=== PATIENT | male | born 1945 | race Caucasian/White ===

== ENCOUNTER 2016-08-01 21:19 | Emergency (ER) | payer MEDICARE ==
[~2016-08-01] VITALS: Ht 182.9 cm; Wt 78.6 kg
[2016-08-01 21:29] VITALS: BP 92/58; PULSE 98; RESP 14; TEMP 100; O2SAT 96
[2016-08-01 21:40] VITALS: BP 116/54; PULSE 87; RESP 18
[2016-08-01] MEDS ORDERED: PROC10TA PO (21:49)
[2016-08-01] MEDS ORDERED: GEMC1INJ IV (21:49)
[2016-08-01] MEDS ORDERED: ONDA1TAB17 PO (21:49)
[2016-08-01] MEDS ORDERED: GEMC1INJ (21:49)
[2016-08-01] MEDS ORDERED: PACLPB100P IV (21:49)
[2016-08-01 22:00] VITALS: BP 118/57; PULSE 90; RESP 18; O2SAT 96
[2016-08-01 22:29] LABS: AUTOMATED NEUTROPHIL # 10.5 TH/MM3 (1.8-7.7); BASOPHIL # 0.1 TH/MM3 (0-0.2); BASOPHIL % 0.6 % (0.0-2.0); EOSINOPHIL # 0.4 TH/MM3 (0-0.4); EOSINOPHIL % 3.6 % (0.0-4.0); HEMATOCRIT 42.5 % (39.0-51.0); LYMPH % 10.3 % (9.0-44.0); LYMPHOCYTE # 1.3 TH/MM3 (1.0-4.8); MEAN CELL VOLUME 88.7 FL (80.0-100.0); MEAN CORPUSCULAR HEMOGLOBIN 29.9 PG (27.0-34.0); MEAN CORPUSCULAR HGB CONC 33.8 % (32.0-36.0); MONO % 1.3 % (0.0-8.0); NEUT % 84.2 % (16.0-70.0); PLATELET COUNT 206 TH/MM3 (150-450); RED CELL DISTRIBUTION WIDTH 12.4 % (11.6-17.2); WHITE BLOOD COUNT 12.5 TH/MM3 (4.0-11.0)
[2016-08-01 22:35] LABS: HEMO FLAGS DIFF FINAL
[2016-08-01 22:37] LABS: CHLORIDE 103 MEQ/L (98-107); POTASSIUM 4.2 MEQ/L (3.5-5.1); SODIUM (NA) 137 MEQ/L (136-145)
--- NOTE | 2016-08-01 22:39 | PD ---
HPI Chief Complaint: Fever Time Seen by Provider: 21:56 Travel History International Travel<30 days: No Contact w/Intl Traveler<30days: No Traveled to known affect area: No History of Present Illness HPI Is a 71-year-old man who presents to the emergency department complaining of fever and the setting of receiving chemotherapy. His a history of recently diagnosed pancreatic cancer. He just started chemotherapy this past Wednesday. He received an infusion of Gemcitabine and Abraxane. He did receive steroids at the time. It does not sound like he received a Neulasta shot. States initially a little bit run down. He started getting some like joint aches. Today started getting some fever. He was monitoring it and it got up to 101.2 and so he called his oncology doctors at [facility] in [place] and he was referred to the emergency department. He's had a slight cough for the past year of no significant change. He has had a little bit of sore throat. No nausea or vomiting. No change in his bowel movement. No abdominal pain. No other complaints. History Past Medical History Narrative Medical Pancreatic cancer, just started chemotherapy Tetanus Vaccination: > 5 Years Influenza Vaccination: Yes Social History Alcohol Use: No Tobacco Use: No Allergies-Medications (Allergen,Severity, Reaction): Coded Allergies: Gadolinium Derivatives (Verified Allergy, Severe, Itching, 08/01/16) Naproxen (Verified Allergy, Severe, Anaphylaxis, 08/01/16) Reported Meds & Prescriptions Reported Meds & Active Scripts Active Reported Gemcitabine Inj 1 Gm Vial Unknown Dose IV WEEKLY Gemcitabine Inj 1 Gm Vial Unknown Dose Prochlorperazine Maleate 10 Mg Tab 10 Mg PO Q8HR Ondansetron (Ondansetron HCl) 8 Mg Tab 8 Mg PO TID PRN Abraxane Inj (Paclitaxel/Albumin) 100 Mg Inj Unknown Dose IV WEEKLY Review of Systems Except as stated in HPI: all other systems reviewed are Neg Physical Exam Narrative GENERAL: 71-year-old man, looks overall well. A little bit gaunt. SKIN: Focused skin assessment warm/dry. HEAD: Atraumatic. Normocephalic. EYES: Pupils equal and round. No scleral icterus. No injection or drainage. ENT: No nasal bleeding or discharge. Mucous membranes pink and moist. TMs normal. Oropharynx is normal without evidence of injection or mucositis. NECK: Trachea midline. No JVD. CARDIOVASCULAR: Regular rate and rhythm. No murmur appreciated. RESPIRATORY: No accessory muscle use. Clear to auscultation. Breath sounds equal bilaterally. GASTROINTESTINAL: Abdomen soft, non-tender, nondistended. Hepatic and splenic margins not palpable. MUSCULOSKELETAL: No obvious deformities. No edema. NEUROLOGICAL: Awake and alert. No obvious cranial nerve deficits. Motor grossly within normal limits. Normal speech. PSYCHIATRIC: Appropriate mood and affect; insight and judgment normal. Data Data Last Documented VS Vital Signs Date Time Temp Pulse Resp B/P Pulse Ox O2 Delivery O2 Flow Rate FiO2 08/01/16 23:45 99.6 82 18 111/53 97 Room Air Orders Complete Blood Count With Diff (08/01/16 22:07) Comprehensive Metabolic Panel (08/01/16 22:07) Blood Culture (08/01/16 22:07) Iv Access Insert/Monitor (08/01/16 22:07) Chest, Single Ap (08/01/16 ) Urinalysis - C+S If Indicated (08/01/16 22:07) Amoxicil-Clavulanate (Augmentin) (08/02/16 00:15) Labs Laboratory Tests Test 08/01/16 08/01/16 22:20 23:10 White Blood Count 12.5 TH/MM3 Red Blood Count 4.80 MIL/MM3 Hemoglobin 14.4 GM/DL Hematocrit 42.5 % Mean Corpuscular Volume 88.7 FL Mean Corpuscular Hemoglobin 29.9 PG Mean Corpuscular Hemoglobin 33.8 % Concent Red Cell Distribution Width 12.4 % Platelet Count 206 TH/MM3 Mean Platelet Volume 8.5 FL Neutrophils (%) (Auto) 84.2 % Lymphocytes (%) (Auto) 10.3 % Monocytes (%) (Auto) 1.3 % Eosinophils (%) (Auto) 3.6 % Basophils (%) (Auto) 0.6 % Neutrophils # (Auto) 10.5 TH/MM3 Lymphocytes # (Auto) 1.3 TH/MM3 Monocytes # (Auto) 0.2 TH/MM3 Eosinophils # (Auto) 0.4 TH/MM3 Basophils # (Auto) 0.1 TH/MM3 CBC Comment DIFF FINAL Differential Comment Sodium Level 137 MEQ/L Potassium Level 4.2 MEQ/L Chloride Level 103 MEQ/L Carbon Dioxide Level 25.3 MEQ/L Anion Gap 9 MEQ/L Blood Urea Nitrogen 15 MG/DL Creatinine 1.00 MG/DL Estimat Glomerular Filtration 74 ML/MIN Rate Random Glucose 117 MG/DL Calcium Level 8.5 MG/DL Total Bilirubin 1.2 MG/DL Aspartate Amino Transf 33 U/L (AST/SGOT) Alanine Aminotransferase 38 U/L (ALT/SGPT) Alkaline Phosphatase 80 U/L Total Protein 7.4 GM/DL Albumin 3.4 GM/DL Urine Color YELLOW Urine Turbidity CLEAR Urine pH 6.5 Urine Specific Bunn 1.010 Urine Protein NEG mg/dL Urine Glucose (UA) NEG mg/dL Urine Ketones NEG mg/dL Urine Occult Blood TRACE Urine Nitrite NEG Urine Bilirubin NEG Urine Leukocyte Esterase NEG Urine WBC 0-2 /hpf Urine Squamous Epithelial 0-5 /hpf Cells Microscopic Urinalysis Comment CULT NOT INDICATED MDM Medical Decision Making Medical Screen Exam Complete: Yes Emergency Medical Condition: Yes Interpretation(s) LABS: CBC remarkable for mild leukocytosis. CMP is unremarkable UA is unremarkable Chest x-ray: Bibasilar interstitial infiltrates consistent with acute or chronic interstitial disease. Clinical correlation recommended. Differential Diagnosis Neutropenic fever, infection, sepsis, other Narrative Course Medical decision making INITIAL: 71-year-old man who presents emergency Department with low-grade fever and concern for infection in the setting of receiving chemotherapy. He looks overall very well. We'll check labs cultures x-ray urine reassess. FINAL: 71-year-old man, well-appearing, on chemotherapy. White count is not depressed. He looks extremely well. Chest x-ray shows some acute or chronic bibasilar interstitial infiltrates. He doesn't really have other symptoms of pneumonia. I spoke to the on-call physician for Dr. Campos. Recommend antibiotics. He'll follow-up closely on Wednesday. Diagnosis Primary Impression: Fever Additional Instructions: Follow-up with your oncologist on Wednesday. Take antibiotics as prescribed. Return to the emergency department for any chest pain, trouble breathing, worsening fevers, or any other new or worsening symptoms. Med/Other Pt SpecificInfo: Prescription(s) given Scripts Amoxicillin-Clavulanate (Augmentin)875-125 Mg Tab1 Tab PO BID 10 Days Ref 0 Prov:Carlos Cash MD 08/02/16 Disposition: DISCHARGE HOME Condition: Stable Carlos Cash MD Aug 01, 2016 22:39
[2016-08-01 22:41] LABS: ANION GAP 9 MEQ/L (5-15); BICARBONATE 25.3 MEQ/L (21.0-32.0)
[2016-08-01 22:42] LABS: BLOOD UREA NITROGEN 15 MG/DL (7-18)
--- NOTE | 2016-08-01 22:43 | RADRPT ---
EXAM DATE/TIME: 08/01/2016 22:24 [facility] COMPARISON: No previous studies available for comparison. INDICATIONS : Fever. MEDICAL HISTORY : None. SURGICAL HISTORY : None. ENCOUNTER: Subsequent ACUITY: 1 day PAIN SCORE: 0/10 LOCATION: Bilateral chest FINDINGS: Bibasilar interstitial infiltrates are noted consistent with acute or chronic interstitial disease. Clinical correlation is recommended. The heart is normal. CONCLUSION: 1. Bibasilar interstitial infiltrates consistent with acute or chronic interstitial disease. Clinic al correlation is recommended. Kodak Avendano MD on August 01, 2016 at 22:37 Board Certified Radiologist. This report was verified electronically.
[2016-08-01 22:44] LABS: ALT (GPT) 38 U/L (12-78)
[2016-08-01 22:45] LABS: AST (GOT) 33 U/L (15-37); GLOMERULAR FILTRATION RATE 74 ML/MIN (>89)
[2016-08-01 22:46] LABS: TOTAL BILIRUBIN ADULT 1.2 MG/DL (0.2-1.0)
[2016-08-01 22:47] LABS: ALKALINE PHOSPHATASE 80 U/L (45-117)
[2016-08-01 23:00] VITALS: BP 110/58; PULSE 80; RESP 18; O2SAT 97
[2016-08-01 23:30] LABS: BLOOD, URINE TRACE (NEG); GLUCOSE,URINE NEG (NEG); KETONE, URINE NEG (NEG); NITRITE,URINE NEG (NEG); PH, URINE 6.5 (5.0-8.5)
[2016-08-01 23:45] VITALS: BP 111/53; PULSE 82; RESP 18; TEMP 99.6; O2SAT 97
[2016-08-01 23:52] LABS: URINE COLOR YELLOW (YELLW/STRAW)
[2016-08-01 23:54] LABS: COMMENT (UR) CULT NOT INDICATED; CULTURE IF INDICATED CULT NOT INDICATED; SQUAMOUS EPITHELIAL CELL URINE 0-5 /hpf (0-5); WBC, URINE 0-2 /hpf (0-5)
[2016-08-02] MEDS ORDERED: AMOXICILLIN/CLAVULANATE K 875 MG TAB PO ONE (00:15)
[2016-08-02] MEDS ORDERED: AUGM875T3 PO (00:21)
[2016-08-02 00:50] VITALS: BP 119/50; TEMP 99
== END 2016-08-02 00:50 | disposition home or self-care (01) ==
LOC: PHED 21:19
DX: C25.1 Malignant neoplasm of body of pancreas (principal); Z79.899 Other long term (current) drug therapy
CPT/HCPCS: 71010; 80053; 81001; 85025; 87040; 99284

== ENCOUNTER 2016-11-17 14:14 | Emergency (ER) | payer MEDICARE ==
[~2016-11-17] VITALS: Ht 180.3 cm; Wt 72.5 kg
[~2016-11-17 14:14] MED LIST: AUGM875T3 PO; GEMC1INJ; GEMC1INJ IV; ONDA1TAB17 PO; PACLPB100P IV; PROC10TA PO
[2016-11-17 14:19] VITALS: BP 117/52; PULSE 85; RESP 16; TEMP 99.1; O2SAT 96
[2016-11-17] MEDS ORDERED: FLUC200T2 PO (14:35)
[2016-11-17] MEDS ORDERED: [UNRECOGNIZED DRUG - OTHER] (14:35)
[2016-11-17] MEDS ORDERED: LEVO750T3 PO (14:35)
--- NOTE | 2016-11-17 14:49 | PD ---
HPI . Vascular access port still accessed Chief Complaint: Employee Training Specialist Problem Time Seen by Provider: 14:38 Travel History International Travel<30 days: No Contact w/Intl Traveler<30days: No Traveled to known affect area: No History of Present Illness HPI 71-year-old male presents to the emergency department to get his vascular access port de-assessed. Patient reported to [facility] in [place] earlier today for his normal chemotherapy treatment for pancreatic cancer. His oncologist opted to postpone the treatment. Him and his left the office and forgot that the port was still accessed. Patient denies any other physiological complaints at this time. PFSH Past Medical History Cancer: Yes (Pancreatic) Chemotherapy: Yes Past Surgical History Abdominal Surgery: Yes (WHIPPLE) Ear Surgery: Yes (Bilateral cataract) Social History Alcohol Use: No Tobacco Use: No Substance Use: No Allergies-Medications (Allergen,Severity, Reaction): Coded Allergies: gadobenic acid (Unverified Allergy, Severe, Itching, 11/17/16) gadodiamide (Unverified Allergy, Severe, Itching, 11/17/16) gadoteridol (Unverified Allergy, Severe, Itching, 11/17/16) naproxen (Unverified Allergy, Severe, Anaphylaxis, 11/17/16) Reported Meds & Prescriptions Reported Meds & Active Scripts Active Reported Levofloxacin 750 Mg Tablet 750 Mg PO DAILY [Seexon S ] Fluconazole 200 Mg Tab 200 Mg PO DAILY Ondansetron (Ondansetron HCl) 8 Mg Tab 8 Mg PO TID PRN Review of Systems Except as stated in HPI: all other systems reviewed are Neg Physical Exam Narrative GENERAL: Well-nourished, well-developed 71-year-old male patient in no acute distress. SKIN: Focused skin assessment warm/dry. HEAD: Normocephalic. Atraumatic EYES: No scleral icterus. No injection or drainage. NECK: Supple, trachea midline. No JVD or lymphadenopathy. CARDIOVASCULAR: Regular rate and rhythm without murmurs, gallops, or rubs. RESPIRATORY: Breath sounds equal bilaterally. No accessory muscle use. GASTROINTESTINAL: 5 small well approximated healing laparotomy incisions noted on abdomen. Drain noted to middle portion of abdomen. Abdomen soft, non-tender , nondistended. MUSCULOSKELETAL: No cyanosis, or edema. BACK: Nontender without obvious deformity. No CVA tenderness. Data Data Last Documented VS Vital Signs Date Time Temp Pulse Resp B/P (MAP) Pulse Ox O2 Delivery O2 Flow Rate FiO2 11/17/16 14:19 99.1 85 16 117/52 (73) 96 Orders Orders Heparin Central Flush (Heparin Central F (11/17/16 14:45) MDM Medical Decision Making Medical Screen Exam Complete: Yes Emergency Medical Condition: Yes Differential Diagnosis Differential diagnoses include but not limited to medical clearance, port access , vascular access removal Narrative Course 71-year-old male presents to the emergency department after he left his oncologist office forgetting to transport de-accessed earlier today. His oncologist is in [facility] in [place]. Patient denies any other physiological complaint this time. No fevers or chills no malaise. Patient's portable be flushed with heparin and de-accessed and patient will be discharged home with his and instructions to follow-up with his primary care and oncologist. Diagnosis Primary Impression: Encounter for care related to vascular access port Referrals: Primary Care Physician Patient Instructions: General Instructions, How to Care for Your Implanted Venous Access Port (GEN), Implanted Venous Access Port (GEN) Additional Instructions: Please return to emergency department if your symptoms return or worsen. Follow up with your primary care provider. Take medications as prescribed.l Disposition: 01 DISCHARGE HOME Condition: Stable Shanti Dalton Nov 17, 2016 14:49
== END 2016-11-17 15:22 | disposition home or self-care (01) ==
LOC: PHEFT 14:14
DX: Z45.2 Encounter for adjustment and management of vascular access device (principal); C25.9 Malignant neoplasm of pancreas, unspecified
CPT/HCPCS: 99283; J1642

== ENCOUNTER 2017-07-21 17:09 | Inpatient (IN) | payer MEDICARE ==
[~2017-07-21] VITALS: Ht 182.9 cm; Wt 61.4 kg
[~2017-07-21 17:09] MED LIST changes: -AUGM875T3 PO; +FLUC200T2 PO; -GEMC1INJ; -GEMC1INJ IV; +LEVO750T3 PO; -ONDA1TAB17 PO; +ONDA8TAB7 PO; -PACLPB100P IV; -PROC10TA PO; +[UNRECOGNIZED DRUG - OTHER]
[2017-07-21 17:21] VITALS: BP 97/53; PULSE 73; RESP 16; TEMP 98; O2SAT 96
[2017-07-21] MEDS ORDERED: CREON12 PO (17:59)
[2017-07-21] MEDS ORDERED: SODIUM CHLORIDE 0.9% FLUSH 10 ML FLUSH IVF PRN (18:00)
--- NOTE | 2017-07-21 18:20 | PD ---
HPI Chief Complaint: Neuro Symptoms/ Deficits Time Seen by Provider: 17:38 Travel History International Travel<30 days: No Contact w/Intl Traveler<30days: No Traveled to known affect area: No History of Present Illness HPI This is a 72-year-old male who has a history of pancreatic cancer who presents to the emergency department with neurologic symptoms. At 1 PM today he was driving and he lost his vision in his left eye and it went bright white, constant, severe associated with poor coordination. When he got home he spoke to his family and found that his speech was slurred and he had trouble holding his keys. His symptoms lasted for about an hour and then subsided. He still feels like his speech is a little bit slow but his vision is back to normal and his coordination has significantly improved. He had a Whipple procedure done at the end of last year and underwent chemotherapy and radiation and is currently cancer free. He says he had a CT of the chest and abdomen pelvis 1-1/ 2 weeks ago which were normal with the exception of some mild pancreatic duct dilation. He also had abnormal liver tests which [facility] is following. PFSH Past Medical History Cancer: Yes (Pancreatic) Chemotherapy: Yes Diminished Hearing: No Radiation Therapy: Yes ?: Not Past Surgical History Abdominal Surgery: Yes (WHIPPLE) Ear Surgery: Yes (Bilateral cataract) Social History Alcohol Use: No Tobacco Use: No Substance Use: No Allergies-Medications (Allergen,Severity, Reaction): Coded Allergies: gadobenic acid (Unverified Allergy, Severe, Itching, 07/21/17) gadodiamide (Unverified Allergy, Severe, Itching, 07/21/17) gadoteridol (Unverified Allergy, Severe, Itching, 07/21/17) naproxen (Unverified Allergy, Severe, Anaphylaxis, 07/21/17) Reported Meds & Prescriptions Reported Meds & Active Scripts Active Reported Creon (Amylase/Lipase/Protease) 12,000-38,000-60,000 Units Cap 1 Cap PO TIDPC Review of Systems Except as stated in HPI: all other systems reviewed are Neg Physical Exam Narrative GENERAL:Well appearing, no acute distress SKIN: Focused skin assessment warm and dry. HEAD: Atraumatic. Normocephalic. EYES: Pupils equal and round. No injection or drainage. ENT: Moist mucous membranes NECK: Trachea midline. CARDIOVASCULAR: Regular rate and rhythm. No murmur appreciated. RESPIRATORY: Clear to auscultation. Breath sounds equal bilaterally. GASTROINTESTINAL: Abdomen soft, non-tender, nondistended. MUSCULOSKELETAL: No obvious deformities. NEUROLOGICAL: Awake and alert. No obvious cranial nerve deficits. No dysarthria or aphasia. No upper or lower extremity drift. Mild ataxia of the left upper extremity. Speech is slightly slow but aphasia noted. PSYCHIATRIC: Appropriate mood and affect; insight and judgment normal. Data Data Last Documented VS Vital Signs Date Time Temp Pulse Resp B/P (MAP) Pulse Ox O2 Delivery O2 Flow Rate FiO2 07/21/17 19:01 62 16 107/54 (71) 98 Room Air 07/21/17 17:21 98.0 Orders Orders Electrocardiogram (07/21/17 17:53) Prothrombin Time / Inr (Pt) (07/21/17 17:53) Act Partial Throm Time (Ptt) (07/21/17 17:53) Complete Blood Count With Diff (07/21/17 17:53) Comprehensive Metabolic Panel (07/21/17 17:53) Ct Brain W/O Iv Contrast(Rout) (07/21/17 17:53) Ecg Monitoring (07/21/17 17:53) Iv Access Insert/Monitor (07/21/17 17:53) Oximetry (07/21/17 17:53) Sodium Chloride 0.9% Flush (Ns Flush) (07/21/17 18:00) Sodium Chlorid 0.9% 500 Ml Inj (Ns 500 M (07/21/17 18:45) Place In Observation (07/21/17 ) Vital Signs (Adult) Q2HX12,Q4H (07/21/17 19:42) Nih Stroke Scale - Nihss .Daily (07/21/17 19:42) Neuro Checks Q2HX12,Q4H (07/21/17 19:42) Notify Dr: Other (07/21/17 19:42) Remove Urinary Catheter .ONCE (07/21/17 19:42) Ot Request For Service (07/21/17 19:42) Pt Request For Service (07/21/17 19:42) Speech Therapy Consult-Eval/Tx (07/21/17 19:42) Case Management Consult (07/21/17 ) Activity Oob Ad Beatrice (07/21/17 19:42) Nursing Bedside Swallow Assess .ONCE (07/21/17 19:42) Scd Bilateral/Knee High CHRISTINE.QSHIFT (07/21/17 19:42) Complete Blood Count With Diff (07/22/17 06:00) Hemoglobin (Hgb) A1c (07/21/17 19:42) Basic Metabolic Panel (Bmp) (07/22/17 06:00) Lipid Profile (07/22/17 06:00) ^ Hold Medication (07/21/17 19:42) Sodium Chloride 0.9% Flush (Ns Flush) (07/21/17 21:00) Sodium Chloride 0.9% Flush (Ns Flush) (07/21/17 19:45) Aspirin (Aspirin) (07/22/17 09:00) Bedside Glucose CHRISTINE.CSUGAR (07/21/17 19:42) ^ Discontinue Insulin Orders (07/21/17 19:42) Insulin Aspart Supplemtl Scale (Novolog (07/21/17 21:00) Dextrose 50% In Fausto (Vial) Inj (D50w (Vi (07/21/17 19:45) Glucagon Inj (Glucagon Inj) (07/21/17 19:45) Glove Turner / Telemetry CHRISTINE.Q8H (07/21/17 19:42) Consult Stroke Navigator (07/21/17 ) Heparin Inj (Heparin Inj) (07/21/17 21:00) Us Carotid Arteries Comp Bilat (07/22/17 ) Echo 2d Comp With Doppler (07/22/17 ) Mra Brain W/O Contrast (Cow) (07/22/17 ) Mri Brain W/O Contrast (07/22/17 ) Labs Laboratory Tests Test 07/21/17 18:24 White Blood Count 8.4 TH/MM3 Red Blood Count 4.54 MIL/MM3 Hemoglobin 13.4 GM/DL Hematocrit 39.7 % Mean Corpuscular Volume 87.4 FL Mean Corpuscular Hemoglobin 29.5 PG Mean Corpuscular Hemoglobin Concent 33.8 % Red Cell Distribution Width 13.2 % Platelet Count 252 TH/MM3 Mean Platelet Volume 7.9 FL Neutrophils (%) (Auto) 73.0 % Lymphocytes (%) (Auto) 13.0 % Monocytes (%) (Auto) 10.2 % Eosinophils (%) (Auto) 3.0 % Basophils (%) (Auto) 0.8 % Neutrophils # (Auto) 6.0 TH/MM3 Lymphocytes # (Auto) 1.1 TH/MM3 Monocytes # (Auto) 0.9 TH/MM3 Eosinophils # (Auto) 0.3 TH/MM3 Basophils # (Auto) 0.1 TH/MM3 CBC Comment DIFF FINAL Differential Comment Prothrombin Time 10.8 SEC Prothromb Time International Ratio 1.1 RATIO Activated Partial Thromboplast Time 36.6 SEC Blood Urea Nitrogen 11 MG/DL Creatinine 0.97 MG/DL Random Glucose 151 MG/DL Total Protein 6.9 GM/DL Albumin 3.3 GM/DL Calcium Level 8.1 MG/DL Alkaline Phosphatase 117 U/L Aspartate Amino Transf (AST/SGOT) 39 U/L Alanine Aminotransferase (ALT/SGPT) 38 U/L Total Bilirubin 0.5 MG/DL Sodium Level 142 MEQ/L Potassium Level 4.0 MEQ/L Chloride Level 108 MEQ/L Carbon Dioxide Level 25.3 MEQ/L Anion Gap 9 MEQ/L Estimat Glomerular Filtration Rate 77 ML/MIN [facility] Medical Decision Making Medical Screen Exam Complete: Yes Emergency Medical Condition: Yes Interpretation(s) Afebrile, no tachycardia, mild hypotension No leukocytosis 73% neutrophils Differential Diagnosis TIA, stroke, seizure, brain metastases Narrative Course This is a 72-year-old male who presents to the emergency department with neurologic symptoms that started at 1 PM and has been rapidly resolving. He was placed on a monitor and an IV was established. Differential includes TIA versus malignancy. Pt. will be admitted for TIA evaluation,. Peg Monroe MD Jul 21, 2017 18:20
[2017-07-21 18:25] VITALS: RESP 15; O2SAT 96
[2017-07-21 18:43] LABS: BASOPHIL # 0.1 TH/MM3 (0-0.2); BASOPHIL % 0.8 % (0.0-2.0); EOSINOPHIL # 0.3 TH/MM3 (0-0.4); HEMATOCRIT 39.7 % (39.0-51.0); HEMOGLOBIN 13.4 GM/DL (13.0-17.0); LYMPHOCYTE # 1.1 TH/MM3 (1.0-4.8); MEAN CELL VOLUME 87.4 FL (80.0-100.0); MEAN CORPUSCULAR HEMOGLOBIN 29.5 PG (27.0-34.0); MEAN CORPUSCULAR HGB CONC 33.8 % (32.0-36.0); MEAN PLATELET VOLUME 7.9 FL (7.0-11.0); MONO % 10.2 % (0.0-8.0); MONOCYTE # 0.9 TH/MM3 (0-0.9); PLATELET COUNT 252 TH/MM3 (150-450); RED BLOOD COUNT 4.54 MIL/MM3 (4.50-5.90); RED CELL DISTRIBUTION WIDTH 13.2 % (11.6-17.2); WHITE BLOOD COUNT 8.4 TH/MM3 (4.0-11.0)
[2017-07-21] MEDS ORDERED: SODIUM CHLORID 0.9% 500 ML INJ 500 ML IV ONE (18:45)
[2017-07-21 18:53] LABS: CHLORIDE 108 MEQ/L (98-107); SODIUM (NA) 142 MEQ/L (136-145)
[2017-07-21 18:57] LABS: CALCIUM 8.1 MG/DL (8.5-10.1)
[2017-07-21 18:58] LABS: ALBUMIN 3.3 GM/DL (3.4-5.0); BICARBONATE 25.3 MEQ/L (21.0-32.0); BLOOD UREA NITROGEN 11 MG/DL (7-18); GLUCOSE,RANDOM 151 MG/DL (74-106); INTERNATIONAL NORMALIZED RATIO 1.1 RATIO; PROTHROMBIN TIME - PATIENT 10.8 SEC (9.8-11.6)
[2017-07-21 19:01] VITALS: BP 107/54; PULSE 62; RESP 16; O2SAT 98
[2017-07-21 19:01] LABS: ALT (GPT) 38 U/L (12-78); AST (GOT) 39 U/L (15-37); CREATININE 0.97 MG/DL (0.60-1.30); GLOMERULAR FILTRATION RATE 77 ML/MIN (>89)
[2017-07-21 19:02] LABS: TOTAL BILIRUBIN ADULT 0.5 MG/DL (0.2-1.0)
[2017-07-21 19:03] LABS: TOTAL PROTEIN 6.9 GM/DL (6.4-8.2)
[2017-07-21 19:04] LABS: ALKALINE PHOSPHATASE 117 U/L (45-117)
--- NOTE | 2017-07-21 19:07 | RADRPT ---
EXAM DATE: 07/21/2017 6:51 PM EDT AGE/SEX: 72 years / Male INDICATIONS: Dizziness, weakness, and numbness with blurry vision. CLINICAL DATA: This is the patient's initial encounter. Patient reports that signs and symptoms have been present for 1 day and indicates a pain score of 0/10. MEDICAL/SURGICAL HISTORY: Carcinoma, pancreas. . RADIATION DOSE: 55.03 CTDI (mGy) COMPARISON: No prior exams available for comparison. TECHNIQUE: CT of the head without contrast. Using automated exposure control and adjustment of the mA and/or kV according to patient size, radiation dose was kept as low as reasonably achievable to ob tain optimal diagnostic quality images. FINDINGS: Cerebrum: The ventricles are normal for age. No evidence of midline shift, mass lesion, hemorrhage or acute infarction. No extraaxial fluid collections are seen. Posterior Fossa: The cerebellum and brainstem are intact. The 4th ventricle is midline. The cerebe llopontine angle is unremarkable. Extracranial: The visualized portion of the orbits is intact. Skull: The calvaria is intact. No evidence of skull fracture. CONCLUSION: 1. Negative CT Head non contrast. Electronically signed by: Lefty Martin MD 07/21/2017 7:06 PM EDT
[2017-07-21] MEDS ORDERED: DEXTROSE 50% IN WATER 50 ML VIAL(D50) IV PUSH PRN (19:45)
[2017-07-21] MEDS ORDERED: SODIUM CHLORIDE 0.9% FLUSH 10 ML FLUSH IV FLUSH PRN (19:45)
[2017-07-21] MEDS ORDERED: GLUCAGON 1 MG/ML VIAL OTHER PRN (19:45)
--- NOTE | 2017-07-21 19:46 | PD ---
Physical Exam Time Seen by Provider: 19:[address] Monroe with this patient with me to check the results of the laboratory and CT scan and make a disposition, likely admission. The CBC is normal. The CT brain shows no acute change, negative CT noncontrast head. The coagulation profile shows an APTT of 36.6 but is otherwise normal. The INR is 1.1. The complete metabolic profile shows a GFR of 77, glucose 151, calcium 8.1 with AST of 39 and albumin of 3.3 but is otherwise unremarkable. Data Data Last Documented VS Vital Signs Date Time Temp Pulse Resp B/P (MAP) Pulse Ox O2 Delivery O2 Flow Rate FiO2 07/21/17 19:01 62 16 107/54 (71) 98 Room Air 07/21/17 17:21 98.0 Orders Orders Electrocardiogram (07/21/17 17:53) Prothrombin Time / Inr (Pt) (07/21/17 17:53) Act Partial Throm Time (Ptt) (07/21/17 17:53) Complete Blood Count With Diff (07/21/17 17:53) Comprehensive Metabolic Panel (07/21/17 17:53) Ct Brain W/O Iv Contrast(Rout) (07/21/17 17:53) Ecg Monitoring (07/21/17 17:53) Iv Access Insert/Monitor (07/21/17 17:53) Oximetry (07/21/17 17:53) Sodium Chloride 0.9% Flush (Ns Flush) (07/21/17 18:00) Sodium Chlorid 0.9% 500 Ml Inj (Ns 500 M (07/21/17 18:45) Labs Laboratory Tests Test 07/21/17 18:24 White Blood Count 8.4 TH/MM3 Red Blood Count 4.54 MIL/MM3 Hemoglobin 13.4 GM/DL Hematocrit 39.7 % Mean Corpuscular Volume 87.4 FL Mean Corpuscular Hemoglobin 29.5 PG Mean Corpuscular Hemoglobin Concent 33.8 % Red Cell Distribution Width 13.2 % Platelet Count 252 TH/MM3 Mean Platelet Volume 7.9 FL Neutrophils (%) (Auto) 73.0 % Lymphocytes (%) (Auto) 13.0 % Monocytes (%) (Auto) 10.2 % Eosinophils (%) (Auto) 3.0 % Basophils (%) (Auto) 0.8 % Neutrophils # (Auto) 6.0 TH/MM3 Lymphocytes # (Auto) 1.1 TH/MM3 Monocytes # (Auto) 0.9 TH/MM3 Eosinophils # (Auto) 0.3 TH/MM3 Basophils # (Auto) 0.1 TH/MM3 CBC Comment DIFF FINAL Differential Comment Prothrombin Time 10.8 SEC Prothromb Time International Ratio 1.1 RATIO Activated Partial Thromboplast Time 36.6 SEC Blood Urea Nitrogen 11 MG/DL Creatinine 0.97 MG/DL Random Glucose 151 MG/DL Total Protein 6.9 GM/DL Albumin 3.3 GM/DL Calcium Level 8.1 MG/DL Alkaline Phosphatase 117 U/L Aspartate Amino Transf (AST/SGOT) 39 U/L Alanine Aminotransferase (ALT/SGPT) 38 U/L Total Bilirubin 0.5 MG/DL Sodium Level 142 MEQ/L Potassium Level 4.0 MEQ/L Chloride Level 108 MEQ/L Carbon Dioxide Level 25.3 MEQ/L Anion Gap 9 MEQ/L Estimat Glomerular Filtration Rate 77 ML/MIN MDM Medical Record Reviewed: Yes Supervised Visit with JULISSA: Yes Differential Diagnosis TIA, CVA, brain tumor, electrolyte disorder, hypo-/hyperglycemia Narrative Course Except for some minimal trouble forming words and slightly slow speech which is almost imperceptible the patient has complete resolution of his symptoms. This appears to be a TIA. The patient will be admitted to Dr. Bartlett. Physician Communication Physician Communication I discussed the patient with Dr. Bartlett. Diagnosis Primary Impression: TIA (transient ischemic attack) Admitting Information Admitting Physician Requests: Admit Cristopher Deleon MD Jul 21, 2017 19:46
[2017-07-21] MEDS ORDERED: ASPIRIN 325 MG TAB PO ONE (20:00)
[2017-07-21 20:15] VITALS: BP 119/63; PULSE 67; RESP 15; O2SAT 99
[2017-07-21 20:45] VITALS: BP 150/66; PULSE 64; RESP 20; TEMP 97.3; O2SAT 99
[2017-07-21] MEDS: INSULIN ASPART SUPPLEMENTAL SCALE SQ SCH (21:00)
[2017-07-21 21:49] VITALS: PULSE 76
[2017-07-21] MEDS: HEPARIN SODIUM - SQ 10,000 UNITS/ML VIAL SQ SCH (22:36)
[2017-07-21] MEDS: SODIUM CHLORIDE 0.9% FLUSH 10 ML FLUSH IV FLUSH SCH (22:37)
[2017-07-22] VITALS (8 sets, daily range): BP systolic 93–132; BP diastolic 54–65; PULSE 64–82; RESP 16–20; TEMP 96.6–98.4; O2SAT 96–97
[2017-07-22 05:44] LABS: BASOPHIL % 0.8 % (0.0-2.0); EOSINOPHIL # 0.4 TH/MM3 (0-0.4); EOSINOPHIL % 8.3 % (0.0-4.0); HEMATOCRIT 36.5 % (39.0-51.0); HEMOGLOBIN 12.5 GM/DL (13.0-17.0); LYMPH % 21.9 % (9.0-44.0); LYMPHOCYTE # 1.2 TH/MM3 (1.0-4.8); MEAN CELL VOLUME 88.5 FL (80.0-100.0); MEAN CORPUSCULAR HEMOGLOBIN 30.2 PG (27.0-34.0); MEAN CORPUSCULAR HGB CONC 34.2 % (32.0-36.0); MEAN PLATELET VOLUME 8.4 FL (7.0-11.0); MONO % 12.7 % (0.0-8.0); MONOCYTE # 0.7 TH/MM3 (0-0.9); NEUT % 56.3 % (16.0-70.0); PLATELET COUNT 222 TH/MM3 (150-450); RED BLOOD COUNT 4.12 MIL/MM3 (4.50-5.90); RED CELL DISTRIBUTION WIDTH 13.1 % (11.6-17.2); WHITE BLOOD COUNT 5.3 TH/MM3 (4.0-11.0)
[2017-07-22 06:03] LABS: BICARBONATE 28.5 MEQ/L (21.0-32.0)
[2017-07-22 06:06] LABS: CREATININE 0.97 MG/DL (0.60-1.30)
[2017-07-22] MEDS: INSULIN ASPART SUPPLEMENTAL SCALE SQ SCH ×4 (07:39→21:00)
[2017-07-22] MEDS: ASPIRIN 325 MG TAB PO SCH (07:41)
[2017-07-22] MEDS: HEPARIN SODIUM - SQ 10,000 UNITS/ML VIAL SQ SCH ×3 (07:41→21:31)
[2017-07-22] MEDS: SODIUM CHLORIDE 0.9% FLUSH 10 ML FLUSH IV FLUSH SCH ×2 (07:42→21:30)
[2017-07-22 10:18] LABS: CHOLESTEROL/ HDL RATIO 5.56 RATIO; HDL CHOLESTEROL 28.2 MG/DL (40.0-60.0)
--- NOTE | 2017-07-22 10:26 | RADRPT ---
EXAM DATE: 07/22/2017 9:10 AM EDT AGE/SEX: 72 years / Male INDICATIONS: TIA. CLINICAL DATA: This is the patient's initial encounter. Patient reports that signs and symptoms have been present for 1 day and indicates a pain score of 0/10. MEDICAL/SURGICAL HISTORY: Carcinoma, pancreas. Chemotherapy and Radiation. Rotator cuff, right . Back surgery - disc trimmed. COMPARISON: No prior exams available for comparison. VELOCITY PARAMETERS: ICA/CCA Ratio: Right 2.5 , Left 1.8 ICA: Right 227.3 cm/sec, Left 182.8 cm/sec CCA: Right 90.3 cm/sec, Left 100.0 cm/sec ECA: Right 253.2 cm/sec, Left 149.5 cm/sec Vertebral: Right 55.5 cm/sec antegrade, Left 34.8 cm/sec antegrade FINDINGS: Right Carotid: Noncalcified atheromatous plaque is seen involving the carotid bulb extending into th e ICA and ECA origins. Utilizing grayscale analysis there is greater than 50% stenosis of both the IC A and ECA origins. There is spectral broadening involving the proximal ICA waveform. A slight delay i n the upstroke. Antegrade diastolic flow remains.. Left Carotid: Noncalcified atheromatous plaque is seen involving the most cephalad portion of the ca rotid bulb extending into the ICA and ECA origins. Utilizing grayscale analysis there is a greater th an 50% stenosis of the ICA origin. The ICA waveform remains normal.. Other: None. CONCLUSION: Soft plaque involving the carotid arteries bilaterally but more pronounced on the right. Bilateral IC A 50-69% stenoses noted. Antegrade flow involving both vertebral arteries. Electronically signed by: Saleem Carolina MD 07/22/2017 10:25 AM EDT
[2017-07-22] MEDS ORDERED: IPRAAER INH (11:26)
--- NOTE | 2017-07-22 11:30 | HHI.HP ---
[facility] Primary [facility]ician No Primary Care Physician Admission Diagnosis TIA Diagnoses: Chief Complaint: Neurological symptoms Travel History International Travel<30 Days: No Contact w/Intl Traveler <30 Da: No Traveled to Known Affected Are: No History of Present Illness This patient is a pleasant young appearing 72-year-old gentleman who is a bit malnourished but overall is in a reasonable state of health. He comes to the emergency room complaining of acute onset of left eye flashing light and subsequent blindness as well as some slurred speech and bilateral upper extremity weakness. These symptoms subsided spontaneously. He did manage to drive himself home while experiencing these symptoms and his urged him come to the emergency room. Earlier that day had been out on the boat, he did not eat breakfast however he had been feeling well. The patient was found in the emergency room to have spontaneous resolution of symptoms and was partly back to baseline. This morning he is back to baseline per the patient and his family. He has never had these symptoms before. Does not have diabetes or hypertension. He only has a history of pancreatic cancer and is status post Whipple procedure. He is experienced quite a bit of weight loss postprocedure. He has not had any fevers or chills or dysuria. On arrival emergency room his blood pressure is 97/53. He did receive some IV fluids and felt a bit better. Patient was recommended for further observation due to possible neurological symptoms related to TIA. So far CT of the head is unremarkable. He also has had a complaint of increased shortness of breath with exertion. Previous imaging at the [facility] where he follows up was worrisome for early emphysematous changes. Patient has a known extensive tobacco history. Review of Systems Constitutional: COMPLAINS OF: Weight loss, DENIES: Diaphoretic episodes, Fatigue, Fever, Weight gain, Chills, Dizziness, Change in appetite, Night Sweats Endocrine: DENIES: Heat/cold intolerance, Polydipsia, Polyuria, Polyphagia Eyes: DENIES: Blurred vision, Diplopia, Eye inflammation, Eye pain, Vision loss , Photosensitivity, Double Vision Ears, nose, mouth, throat: DENIES: Tinnitus, Hearing loss, Vertigo, Nasal discharge, Oral lesions, Throat pain, Hoarseness, Ear Pain, Running Nose, Epistaxis, Sinus Pain, Toothache, Odynophagia Respiratory: DENIES: Apneas, Cough, Snoring, Wheezing, Hemoptysis, Sputum production, Shortness of breath Cardiovascular: DENIES: Chest pain, Palpitations, Syncope, Dyspnea on Exertion , PND, Lower Extremity Edema, Orthopnea, Claudication Gastrointestinal: DENIES: Abdominal pain, Black stools, Bloody stools, Constipation, Diarrhea, Nausea, Vomiting, Difficulty Swallowing, Anorexia Genitourinary: DENIES: Sexual dysfunction, Urinary frequency, Urinary incontinence, Urgency, Hematuria, Dysuria, Nocturia, Penile Discharge, Testicular Pain, Testicular Swelling Musculoskeletal: DENIES: Joint pain, Muscle aches, Stiffness, Joint Swelling, Back pain, Neck pain Integumentary: DENIES: Abnormal pigmentation, Nail changes, Pruritus, Rash Hematologic/lymphatic: DENIES: Bruising, Lymphadenopathy Immunologic/allergic: DENIES: Eczema, Urticaria Neurologic: DENIES: Abnormal gait, Headache, Localized weakness, Paresthesias, Seizures, Speech Problems, Tremor, Poor Balance Psychiatric: DENIES: Anxiety, Confusion, Mood changes, Depression, Hallucinations, Agitation, Suicidal Ideation, Homicidal Ideation, Delusions Except as stated in HPI: all other systems reviewed are Neg Past Family Social History Past Medical History Pancreas insufficiency status post Whipple History of pancreatic cancer Past Surgical History Status post Whipple Multiple orthopedic surgeries including rotator cuff and back surgery Reported Medications Creon, patient has been decreasing the dose to avoid side effects Allergies: Coded Allergies: gadobenic acid (Unverified Allergy, Severe, Itching, 07/21/17) gadodiamide (Unverified Allergy, Severe, Itching, 07/21/17) gadoteridol (Unverified Allergy, Severe, Itching, 07/21/17) naproxen (Unverified Allergy, Severe, Anaphylaxis, 07/21/17) Active Ordered Medications Reviewed in the EMR Family History Mother in her 80s from pancreatic cancer Father in his 90s after falling off a ladder Social History Patient smokes at least 2-3 packs a year for over 25 years Retired Lives with his Physical Exam Vital Signs Vital Signs Date Time Temp Pulse Resp B/P (MAP) Pulse Ox O2 Delivery O2 Flow Rate FiO2 07/22/17 08:58 97.2 74 16 128/58 (81) 96 07/22/17 04:00 96.9 64 20 93/54 (67) 97 07/22/17 00:00 97.1 69 20 129/59 (82) 96 07/21/17 21:49 76 07/21/17 20:50 07/21/17 20:45 97.3 64 20 150/66 (94) 99 07/21/17 20:15 67 15 119/63 (81) 99 Room Air 07/21/17 19:01 62 16 107/54 (71) 98 Room Air 07/21/17 18:25 15 96 Room Air 07/21/17 17:52 96 Room Air 07/21/17 17:21 98.0 73 16 97/53 (68) 96 Physical Exam GENERAL: This is a cachectic well-developed male SKIN: No rashes, ecchymoses or lesions. Cool and dry. HEAD: Atraumatic. Normocephalic. No temporal or scalp tenderness. EYES: Pupils equal round and reactive. Extraocular motions intact. No scleral icterus. No injection or drainage. ENT: Nose without bleeding, purulent drainage or septal hematoma. Throat without erythema, tonsillar hypertrophy or exudate. Uvula midline. Airway patent. NECK: Trachea midline. No JVD or lymphadenopathy. Supple, nontender, no meningeal signs. CARDIOVASCULAR: Regular rate and rhythm without murmurs, gallops, or rubs. RESPIRATORY: Clear to auscultation. Breath sounds equal bilaterally. No wheezes , rales, or rhonchi. GASTROINTESTINAL: Abdomen soft, non-tender, nondistended. No hepato-splenomegaly , or palpable masses. No guarding. MUSCULOSKELETAL: Extremities without clubbing, cyanosis, or edema. No joint tenderness, effusion, or edema noted. No calf tenderness. Negative Homans sign bilaterally. NEUROLOGICAL: Awake and alert. Cranial nerves II through XII intact. Motor and sensory grossly within normal limits. Five out of 5 muscle strength in all muscle groups. Normal speech. Laboratory Laboratory Tests Test 07/21/17 18:24 07/22/17 04:40 White Blood Count 8.4 5.3 Red Blood Count 4.54 4.12 Hemoglobin 13.4 12.5 Hematocrit 39.7 36.5 Mean Corpuscular Volume 87.4 88.5 Mean Corpuscular Hemoglobin 29.5 30.2 Mean Corpuscular Hemoglobin Concent 33.8 34.2 Red Cell Distribution Width 13.2 13.1 Platelet Count 252 222 Mean Platelet Volume 7.9 8.4 Neutrophils (%) (Auto) 73.0 56.3 Lymphocytes (%) (Auto) 13.0 21.9 Monocytes (%) (Auto) 10.2 12.7 Eosinophils (%) (Auto) 3.0 8.3 Basophils (%) (Auto) 0.8 0.8 Neutrophils # (Auto) 6.0 3.0 Lymphocytes # (Auto) 1.1 1.2 Monocytes # (Auto) 0.9 0.7 Eosinophils # (Auto) 0.3 0.4 Basophils # (Auto) 0.1 0.0 CBC Comment DIFF FINAL DIFF FINAL Differential Comment Prothrombin Time 10.8 Prothromb Time International Ratio 1.1 Activated Partial Thromboplast Time 36.6 Blood Urea Nitrogen 11 12 Creatinine 0.97 0.97 Random Glucose 151 128 Total Protein 6.9 Albumin 3.3 Calcium Level 8.1 8.0 Alkaline Phosphatase 117 Aspartate Amino Transf (AST/SGOT) 39 Alanine Aminotransferase (ALT/SGPT) 38 Total Bilirubin 0.5 Sodium Level 142 143 Potassium Level 4.0 3.7 Chloride Level 108 108 Carbon Dioxide Level 25.3 28.5 Anion Gap 9 7 Estimat Glomerular Filtration Rate 77 77 Triglycerides Level 214 Cholesterol Level 157 LDL Cholesterol 86 HDL Cholesterol 28.2 Cholesterol/HDL Ratio 5.56 Result Diagram: 07/22/17 0440 07/22/17 0440 Imaging Last Impressions Carotid Artery Ultrasound 07/22/17 0000 Signed Impressions: CONCLUSION: Soft plaque involving the carotid arteries bilaterally but more pronounced on t he right. Bilateral ICA 50-69% stenoses noted. Antegrade flow involving both ve rtebral arteries. Head CT 07/21/17 9367 Signed Impressions: CONCLUSION: 1. Negative CT Head non contrast. Assessment and Plan Problem List: (1) TIA (transient ischemic attack) ICD Code: G45.9 - Transient cerebral ischemic attack, unspecified Status: Acute Plan: Acute symptoms appear resolved Patient also hypotensive and with mildly elevated blood sugar Continue with IV hydration follow-up imaging Patient's risk factors for stroke are minimal however he has some comorbidities related to his pancreatic surgery including weight loss and mildly elevated blood sugar (2) Weight loss ICD Code: R63.4 - Abnormal weight loss Plan: Probably related to his pancreatic insufficiency Continue Creon Encourage protein in diet, encourage fluids 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 but would prefer to have this done as an outpatient He will follow-up at the [facility] (3) Hyperglycemia ICD Code: R73.9 - Hyperglycemia, unspecified Plan: Random blood sugar 150 Subsequent blood sugars have been within normal limits Given patient's pancreatic disease it is worthwhile to continue surveillance and adjusted diet appropriately This is discussed with the patient and at bedside (4) SOB (shortness of breath) ICD Code: R06.02 - Shortness of breath Plan: Probably early COPD Will need outpatient follow-up but per the patient imaging in the past that shows early emphysematous changes. Patient has a nearly 18-06-lxvd-year history tobacco although he has quit over 25 years ago Code Status full code Danica Whitten MD Jul 22, 2017 11:30
--- NOTE | 2017-07-22 12:14 | RADRPT ---
EXAM DATE: 07/22/2017 10:43 AM EDT AGE/SEX: 72 years / Male INDICATIONS: CVA. Slurred speech and left vision loss. CLINICAL DATA: This is the patient's initial encounter. Patient reports that signs and symptoms have been present for 1 day and indicates a pain score of 0/10. MEDICAL/SURGICAL HISTORY: Carcinoma, pancreas. Discectomy, lumbar. Cataracts and whipple. COMPARISON: No prior exams available for comparison. TECHNIQUE: 3D [id number] MRA was performed. Source images, multiplanar STS MIP, and 3D volum e MIP reconstructions were reviewed. FINDINGS: There is small vessel atherosclerotic disease involving multiple branches bilaterally. There is no ev idence for aneurysm, vessel truncation or stenosis, and no evidence for vascular malformation. CONCLUSION: 1. Chronic small vessel atherosclerotic changes without vessel truncation or definite filling defect s. Electronically signed by: Dank Garrison MD 07/22/2017 12:13 PM EDT
--- NOTE | 2017-07-22 12:22 | RADRPT ---
EXAM DATE: 07/22/2017 10:43 AM EDT AGE/SEX: 72 years / Male INDICATIONS: Dizziness. Slurred speech. Loss of vision in left eye. CLINICAL DATA: This is the patient's subsequent encounter. Patient reports that signs and symptoms h ave been present for 2 days and indicates a pain score of 0/10. MEDICAL/SURGICAL HISTORY: Carcinoma, pancreas. Discectomy, lumbar. Whipple, cataract COMPARISON: No prior exams available for comparison. TECHNIQUE: Multiplanar, multisequence examination of the brain was performed without contrast. FINDINGS: There are punctate areas of abnormal diffusion involving the left posterior temporal lobe, occipital lobe and posterior parietal lobe 3 separate areas measuring 4 to 5 mm each. There is no hemorrhage or mass effect. The ventricles are normal size for the patient's age. CONCLUSION: 1. Multiple areas of punctate embolic appearing acute infarction is in the left occipital posterior temporal and parietal lobes without hemorrhage or mass effect. Findings were discussed with the [facility]'s nurse,Juliet on 07/22/2017 at 12:18 hours. Electronically signed by: Dank Garrison MD 07/22/2017 12:21 PM EDT
--- NOTE | 2017-07-22 14:23 | ECHRPT ---
Indication: CVA/TIA CONCLUSIONS Technically difficult study. The left ventricular systolic function is grossly normal on limited imaging. There was limited left ventricular wall motion assessment due to poor endocardial visualization. Trace mitral valve regurgitation. Trace tricuspid regurgitation. BP: 93 / 54 HR: 64 Rhythm: MEASUREMENTS (Male / Female) Normal Values Technical Quality:Technically difficult study DOPPLER AV Peak Velocity 103.0 cm/s AV Peak Gradient 4.2 mmHg AV Mean Gradient 2.0 mmHg AV Velocity Time Integral 20.2 cm LVOT Peak Velocity 51.9 cm/s LVOT Peak Gradient 1.1 mmHg LVOT Velocity Time Integral 11.4 cm Mitral E Point Velocity 45.9 cm/s Mitral A Point Velocity 50.8 cm/s Mitral E to A Ratio 0.9 TR Peak Velocity 160.0 cm/s TR Peak Gradient 10.2 mmHg Right Atrial Pressure 10.0 mmHg Pulmonary Artery Systolic Pressu 20.2 mmHg Right Ventricular Systolic Press 20.2 mmHg PV Peak Velocity 73.7 cm/s PV Peak Gradient 2.2 mmHg FINDINGS LEFT VENTRICLE Normal left ventricular size. The left ventricular systolic function is grossly normal on limited imaging. There was limited left ventricular wall motion assessment due to poor endocardial visualization. RIGHT VENTRICLE Grossly normal appearing LEFT ATRIUM The left atrium was not well visualized. RIGHT ATRIUM The right atrium is not well visualized. ATRIAL SEPTUM Normal atrial septal thickness. MITRAL VALVE Structurally normal mitral valve. No mitral valve stenosis. Trace mitral valve regurgitation. AORTIC VALVE No aortic valve stenosis or regurgitation. TRICUSPID VALVE Grossly normal tricuspid valve. Trace tricuspid regurgitation. The estimated pulmonary arterial pressure is 20.2 mmHg. PULMONARY VALVE The pulmonary valve is not well visualized. PERICARDIUM No pericardial effusion. Eric Villeda DO (Electronically Signed) Final Date:22 July 2017 14:22
[2017-07-22 17:35] LABS: HEMOGLOBIN A1C 6.3 % (4.3-6.0)
--- NOTE | 2017-07-22 18:17 | EKG ---
Date Performed: 07/21/2017 Time Performed: 17:59:34 PTAGE: 72 years EKG: Sinus rhythm NORMAL ECG NO PREVIOUS TRACING DOCTOR: Celia Tineo Interpretating Date/Time 07/22/2017 18:13:16
[2017-07-22] MEDS ORDERED: GLUCAGON 1 MG/ML VIAL OTHER PRN (21:15)
[2017-07-22] MEDS ORDERED: SODIUM CHLORIDE 0.9% FLUSH 10 ML FLUSH IV FLUSH PRN (21:15)
[2017-07-22] MEDS ORDERED: DEXTROSE 50% IN WATER 50 ML VIAL(D50) IV PUSH PRN (21:15)
--- NOTE | 2017-07-22 21:31 | MB ---
cc: Wilfred Chong MD, PhD Wilfred Chong MD PhD DATE: 07/22/2017 REASON FOR CONSULTATION: Abnormal MRI. HISTORY OF PRESENT ILLNESS: Mr. Casarez is a very nice 72-year-old man who has pancreatic cancer. Yesterday while driving he suddenly had visual complaints where he saw increased sensitivity to light in both eyes and had a flashing light in the left eye, then the entire left eye lost vision. He also had some slurred speech as well as difficulty controlling the left hand with weakness. He also felt somewhat clumsy in the right hand. His symptoms, by yesterday evening, completely resolved. He is back to his baseline state today. PAST MEDICAL HISTORY: History of pancreatic cancer. He has a history of chemotherapy, Whipple procedure, back surgery, rotator cuff repair surgery. ALLERGIES: NAPROXEN, GADOTERIDOL, GADODIAMIDE, GABABENIC ACID, PHYSICAL EXAMINATION: VITAL SIGNS: Blood pressure 119/56, pulse 77, respirations 17, temperature 97.2 degrees. Higher cortical functions are normal at this time including speech. Cranial nerves are intact. Visual reaves are normal. Pupils are equal and reactive. Motor exam demonstrates 5/5 strength of all groups in both upper and lower extremities. There is no drift. Reflexes are symmetric. Cerebellar testing is normal. RADIOGRAPH STUDIES: MRI of the brain shows multiple areas of punctate embolic acute infarctions in the left occipital posterior temporal and parietal lobe without hemorrhage or mass effect. MRA of the brain shows chronic small vessel atherosclerosis without large vessel occlusion. Carotid ultrasound reveals 50-69% bilateral ICA stenosis. CT brain: No acute change. LABORATORY DATA: White count 5300, hemoglobin 12.5, hematocrit 36.5%, platelets are 222,000. PT 10.8, INR 1.1, aPTT 36.6. Sodium is 143, potassium 3.7, chloride 108, CO2 of 29, BUN is 12, creatinine 0.97, GFR 77, glucose 128, triglycerides 214, cholesterol 157, LDL 86. IMPRESSION: Acute left hemispheric strokes involving left posterior communicating artery and middle cerebral artery territories, possible bilateral carotid stenosis. He states he lost vision completely in the left eye, then it returned. This is suggestive of amaurosis fugax, possibly related to carotid artery stenosis. There is evidence, however, of acute strokes in the left [employer] distribution, which would raise the concern of the possibility of cardioembolic events. RECOMMENDATIONS: We will start aspirin 325 mg daily. I would like to get a CT angiogram to further define the carotid stenosis. We will check an echocardiogram. Monitor cardiac telemetry, rule out atrial fibrillation. Thank you for asking me to see this nice man in consult. Wilfred Chong MD, PhD PARTH/ , 09:10 PM , 09:29 PM
[2017-07-23] VITALS: BP 101/53; PULSE 69; RESP 20; TEMP 96.9; O2SAT 97
[2017-07-23 00:11] VITALS: O2SAT 96
[2017-07-23 04:00] VITALS: BP 120/60; PULSE 73; RESP 20; TEMP 96.5; O2SAT 97
[2017-07-23] MEDS ORDERED: IOHEXOL 350 MG/ML 10 ML VIAL (for RAD DIAG) IVCONTRAST ONE (06:37)
--- NOTE | 2017-07-23 06:37 | RADRPT ---
EXAM DATE: 07/23/2017 6:16 AM EDT AGE/SEX: 72 years / Male INDICATIONS: Transient ischemic attack. CLINICAL DATA: This is the patient's initial encounter. Patient reports that signs and symptoms have been present for 1 day and indicates a pain score of 0/10. MEDICAL/SURGICAL HISTORY: Carcinoma, pancreas. . Whipple surgery. RADIATION DOSE: 42.29 CTDI (mGy) COMPARISON: [facility], MRI BRAIN W/O CONTRAST, 07/22/2017. . TECHNIQUE: Volumetric scanning was performed using a multi-row detector CT scanner during bolus infu jagruti of 73 ml Omnipaque 350 (iohexol) nonionic water-soluble contrast as a cumulative dose for multi ple exams. The data was post processed with a variety of visualization algorithms including full vo lume maximum intensity projection, multi-planar sliding thin slab reformation, curved planar reformat ion, and surface rendering techniques. Using automated exposure control and adjustment of the mA and /or kV according to patient size, radiation dose was kept as low as reasonably achievable to obtain o ptimal diagnostic quality images. FINDINGS: There is excellent visualization of the major intracranial arteries out to the second-order branch ve ssels. There is no evidence for aneurysm, vessel truncation or stenosis, and no evidence for vascula r malformation. The right posterior cerebral artery arises from the right internal carotid artery. Th is is a normal variant. CONCLUSION: Negative CTA of the head. Electronically signed by: Lefty Chavez MD 07/23/2017 6:35 AM EDT
[2017-07-23] MEDS: HEPARIN SODIUM - SQ 10,000 UNITS/ML VIAL SQ SCH (06:44)
--- NOTE | 2017-07-23 06:46 | RADRPT ---
EXAM DATE: 07/23/2017 6:36 AM EDT AGE/SEX: 72 years / Male INDICATIONS: Transient ischemic attack. CLINICAL DATA: This is the patient's initial encounter. Patient reports that signs and symptoms have been present for 1 day and indicates a pain score of 0/10. MEDICAL/SURGICAL HISTORY: Carcinoma, pancreas. . Whipple surgery. RADIATION DOSE: 42.29 CTDI (mGy) COMPARISON: [facility], CTA BRAIN W 3D RECON, 07/23/2017. . TECHNIQUE: Volumetric scanning was performed using a multirow detector CT scanner during bolus infus ion of 73 ml Omnipaque 350 (iohexol) nonionic water-soluble contrast as a cumulative dose for multip le exams. The data was postprocessed with a variety of visualization algorithms including full-volu me maximum intensity projection, multiplanar sliding thin-slab reformation, curved-planar reformation , and surface-rendering techniques. Using automated exposure control and adjustment of the mA and/or kV according to patient size, radiation dose was kept as low as reasonably achievable to obtain opti mal diagnostic quality images. FINDINGS: Aortic Arch: There is a three-vessel origin of the great vessels from the aorta. No evidence of ost ial narrowing Right Carotid: The common carotid artery is intact. There is plaque at the carotid bulb region. The lumen appears to be narrowed by 60%. The more distal aspect of the internal carotid artery is patent . Left Carotid: The common carotid artery is intact. There is plaque at the carotid bulb region. The lumen appears to be narrowed by 60%. The more distal aspect of the internal carotid artery is patent. Vertebrals: The vertebral arteries have a symmetric diameter. No stenotic lesions are seen. Elevated flow velocities and ICA/CCA ratios have been found to correlate with increased degrees of ve ssel stenosis, calculated as percentage of diameter relative to a normal segment of distal ICA/CCA. CONCLUSION: Plaque seen at the carotid bulb regions bilaterally narrowing the lumen by approximately 60%. Electronically signed by: Lefty Chavez MD 07/23/2017 6:45 AM EDT
[2017-07-23 07:51] VITALS: BP 112/59; PULSE 69; RESP 18; TEMP 96.2; O2SAT 95
[2017-07-23] MEDS: INSULIN ASPART SUPPLEMENTAL SCALE SQ SCH (07:57)
[2017-07-23] MEDS: ASPIRIN 325 MG TAB PO SCH (07:58)
[2017-07-23] MEDS: SODIUM CHLORIDE 0.9% FLUSH 10 ML FLUSH IV FLUSH SCH (07:59)
[2017-07-23] MEDS ORDERED: INSULIN ASPART SUPPLEMENTAL SCALE SQ SCH (08:00)
[2017-07-23 08:30] VITALS: PULSE 79
[2017-07-23] MEDS ORDERED: SODIUM CHLORIDE 0.9% FLUSH 10 ML FLUSH IV FLUSH SCH (09:00)
[2017-07-23] MEDS ORDERED: ASPIRIN 325 MG TAB PO SCH (09:00)
[2017-07-23] MEDS ORDERED: ATORVASTATIN 20 MG TAB PO SCH (10:00)
[2017-07-23] MEDS ORDERED: ATOR20TA15 PO (10:00)
[2017-07-23] MEDS ORDERED: ASA325 PO (10:00)
--- NOTE | 2017-07-23 10:01 | HHI.DCPOC ---
Discharge Care Plan Diagnosis: (1) CVA (cerebral vascular accident) (2) Weight loss Goals to Promote Your Health * To prevent worsening of your condition and complications * To maintain your health at the optimal level Directions to Meet Your Goals Take your medications as prescribed Follow your dietary instruction Follow activity as directed Keep your appointments as scheduled Take your immunizations and boosters as scheduled If your symptoms worsen call your PCP, if no PCP go to Urgent Care Center or Emergency Room Smoking is Dangerous to Your Health. Avoid second hand smoke Call the 24-hour hour crisis hotline for domestic abuse at Danica Whitten MD Jul 23, 2017 10:01
--- NOTE | 2017-07-23 10:18 | HHI.DS ---
Discharge Summary Admission Date Jul 22, 2017 at 16:17 Discharge Date: Jul 23, 2017 Admitting Diagnosis TIA (1) Weight loss ICD Code: R63.4 - Abnormal weight loss (2) Hyperglycemia ICD Code: R73.9 - Hyperglycemia, unspecified (3) SOB (shortness of breath) ICD Code: R06.02 - Shortness of breath (4) CVA (cerebral vascular accident) ICD Code: I63.9 - Cerebral infarction, unspecified Procedures None Brief History - From Admission This patient is a pleasant young appearing 72-year-old gentleman who is a bit malnourished but overall is in a reasonable state of health. He comes to the emergency room complaining of acute onset of left eye flashing light and subsequent blindness as well as some slurred speech and bilateral upper extremity weakness. These symptoms subsided spontaneously. He did manage to drive himself home while experiencing these symptoms and his urged him come to the emergency room. Earlier that day had been out on the boat, he did not eat breakfast however he had been feeling well. The patient was found in the emergency room to have spontaneous resolution of symptoms and was partly back to baseline. This morning he is back to baseline per the patient and his family. He has never had these symptoms before. Does not have diabetes or hypertension. He only has a history of pancreatic cancer and is status post Whipple procedure. He is experienced quite a bit of weight loss postprocedure. He has not had any fevers or chills or dysuria. On arrival emergency room his blood pressure is 97/53. He did receive some IV fluids and felt a bit better. Patient was recommended for further observation due to possible neurological symptoms related to TIA. So far CT of the head is unremarkable. He also has had a complaint of increased shortness of breath with exertion. Previous imaging at the [facility] where he follows [facility] was worrisome for early emphysematous changes. Patient has a known extensive tobacco history. CBC/BMP: 07/22/17 0440 07/22/17 0440 Significant Findings Laboratory Tests Test 07/21/17 18:24 07/22/17 04:40 Neutrophils (%) (Auto) 73.0 % (16.0-70.0) Monocytes (%) (Auto) 10.2 % (0.0-8.0) 12.7 % (0.0-8.0) Activated Partial Thromboplast Time 36.6 SEC (24.3-30.1) Random Glucose 151 MG/DL (74-106) 128 MG/DL (74-106) Albumin 3.3 GM/DL (3.4-5.0) Calcium Level 8.1 MG/DL (8.5-10.1) 8.0 MG/DL (8.5-10.1) Aspartate Amino Transf (AST/SGOT) 39 U/L (15-37) Chloride Level 108 MEQ/L (98-107) 108 MEQ/L (98-107) Estimat Glomerular Filtration Rate 77 ML/MIN (>89) 77 ML/MIN (>89) Hemoglobin A1c 6.3 % (4.3-6.0) Red Blood Count 4.12 MIL/MM3 (4.50-5.90) Hemoglobin 12.5 GM/DL (13.0-17.0) Hematocrit 36.5 % (39.0-51.0) Eosinophils (%) (Auto) 8.3 % (0.0-4.0) Triglycerides Level 214 MG/DL (42-150) HDL Cholesterol 28.2 MG/DL (40.0-60.0) Imaging Last Impressions Neck CTA 07/23/17 Signed Impressions: CONCLUSION: Plaque seen at the carotid bulb regions bilaterally narrowing the lumen by appr oximately 60%. Head CTA 07/23/17 Signed Impressions: CONCLUSION: Negative CTA of the head. Head Magnetic Resonance Angiography 07/22/17 Signed Impressions: CONCLUSION: 1. Chronic small vessel atherosclerotic changes without vessel truncation or d efinite filling defects. Carotid Artery Ultrasound 07/22/17 Signed Impressions: CONCLUSION: Soft plaque involving the carotid arteries bilaterally but more pronounced on t he right. Bilateral ICA 50-69% stenoses noted. Antegrade flow involving both ve rtebral arteries. Brain MRI 07/22/17 Signed Impressions: CONCLUSION: 1. Multiple areas of punctate embolic appearing acute infarction is in the lef t occipital posterior temporal and parietal lobes without hemorrhage or mass ef fect. Findings were discussed with the patient's nurse,Juliet on 07/22/2017 at 12 :[address] 07/21/17 1570 Signed Impressions: CONCLUSION: 1. Negative CT Head non contrast. PE at Discharge GENERAL: This is a cachectic well-developed gentleman in no acute distress CARDIOVASCULAR: Regular rate and rhythm without murmurs, gallops, or rubs. RESPIRATORY: Clear to auscultation. Breath sounds equal bilaterally. No wheezes , rales, or rhonchi. GASTROINTESTINAL: Abdomen soft, non-tender, nondistended. Normal active bowel sounds MUSCULOSKELETAL: Extremities without clubbing, cyanosis, or edema. NEURO: Alert & Oriented x4 to person, place, time, situation. Moves all ext x4 Pt update on day of discharge Patient doing better and back to baseline. Discharge plans discussed with patient. Medication indication discussed with patient. Neurology consult appreciated Hospital Course Patient is a 72-year-old gentleman who had an acute infarct with symptoms of amaurosis fugax. Symptoms are resolved and patient is back to baseline. Images show moderate but noncritical stenosis. Patient is recommended for aspirin and statin therapy. Discharge plans were discussed with patient. It is malnutrition which was quite severe and he was seen by the dietitian and protein rich diet was recommended. Patient has pancreatic insufficiency due to pancreatic cancer and has had quite a bit of weight loss. Pt Condition on Discharge: Good Discharge Disposition: Discharge Home Discharge Time: <= 30 minutes Discharge Instructions DIET: Follow Instructions for: As Tolerated, No Restrictions, High Protein Diet Additional Diet Instructions: watch carbs drink IVF Activities you can perform: Regular-No Restrictions Follow up Referrals: Appointment for Follow Up Neurology - 4 Weeks with Wilfred Chong MD PhD PCP Follow-up - 2 Weeks with joshua waldrop MD PCP Follow-up New Medications: Ipratropium-Albuterol Inh (Combivent Respimat Inh) 20-100 Intermediate/Act Aero 1 PUFF INH QID PRN for SHORTNESS OF BREATH, #1 INHALER 0 Refills Aspirin (Px Aspirin) 325 Mg Tab 325 MG PO DAILY for cva, #31 TAB Atorvastatin (Atorvastatin) 20 Mg Tab 20 MG PO DAILY for cva, #31 TAB Continued Medications: Pancrelipase (Creon) 12,000-38,000-60,000 Units Cap 1 CAP PO TIDPC for Digestive Aid, #90 CAP 0 Refills Danica Whitten MD Jul 23, 2017 10:18
== END 2017-07-23 10:58 | disposition home or self-care (01) | DRG 64 ==
LOC: PHED 17:09 → PHEDA 19:45 → PH3A 20:42 → OBSVTOIN 07-22 16:17
PROVIDERS: ADMIT Hospitalist; ATTEND Hospitalist
DX: I63.9 Cerebral infarction, unspecified (principal); E43 Unspecified severe protein-calorie malnutrition; C25.9 Malignant neoplasm of pancreas, unspecified; Z68.1 Body mass index [BMI] 19.9 or less, adult; H54.7 Unspecified visual loss; R53.1 Weakness; R47.81 Slurred speech; R73.9 Hyperglycemia, unspecified; I65.23 Occlusion and stenosis of bilateral carotid arteries; F17.200 Nicotine dependence, unspecified, uncomplicated; Z88.8 Allergy status to other drugs, medicaments and biological substances; Z92.21 Personal history of antineoplastic chemotherapy
CPT/HCPCS: 70450; 70496; 70498; 70544; 70551; 80048; 80053; 80061; 82948; 83036; 85025; 85610; 85730; 93005; 93306; 93880; G8987-GO; G8987-GP; G8988-GO; G8988-GP; G8989-GO; G8999-GN; G9158-GN; G9186-GN; J1642; J1644; J7040; Q9967